=== PATIENT | male | born 1985 | race African-American/Black ===

== ENCOUNTER 2021-02-13 10:48 | Emergency (ER) | payer BC ==
[2021-02-13] MEDS ORDERED: Sodium Chloride 0.9% 10 ML Syringe FLUSH PRN (11:07)
[2021-02-13] MEDS ORDERED: Aspirin 81 MG Tab.Chew PO ONE (11:07)
[2021-02-13] MEDS ORDERED: Famotidine 20 MG/2 ML SDV IVPUSH PRN (11:28)
[2021-02-13] MEDS ORDERED: methylPREDNISolone Sodium Succinate 125 MG/2 ML SDV IVPUSH PRN (11:28)
[2021-02-13] MEDS ORDERED: diphenhydrAMINE 50 MG/ML SDV IVPUSH PRN (11:28)
[2021-02-13] MEDS ORDERED: EPINEPHrine 1 MG/ML SDV IM PRN (11:28)
[2021-02-13] MEDS ORDERED: Sodium Chloride 0.9% 10 ML Syringe FLUSH SCH (11:30)
--- NOTE | 2021-02-13 11:35 | CR ---
Chest: Frontal view of the chest was obtained. Comparison: No prior chest imaging is available. Heart size and mediastinum are normal. Lungs are clear with no acute parenchymal change. Bony structures show nothing acute. Impression: 1. Nothing acute is seen on portable chest x-ray. Diagnostic code #1
--- NOTE | 2021-02-13 11:51 | EDM.PDOC ---
ED HPI GENERAL MEDICAL PROBLEM - General Chief Complaint: Chest Pain Stated Complaint: CHEST PAIN X 2 DAYS Time Seen by Provider: 02/13/21 11:20 Source of Information: Reports: Patient, RN Notes Reviewed History Limitations: Reports: No Limitations - History of Present Illness INITIAL COMMENTS - FREE TEXT/NARRATIVE: Patient is a 35-year-old male who presents to the ER for evaluation of his left- sided chest discomfort. States that this started last night, and has been fairly constant since it started. He took some Tylenol and ibuprofen for initial management and states this seemed to help a little bit. Patient was diagnosed with COVID-19, and his symptoms started on February 05, 2021. Patient does suffer from JUDY, and has a BMI of 43. No other major medical issues that he reports. Not having any fevers or chills, cough, or any worsening shortness of breath or any sort of nausea or vomiting or diarrhea. Patient states he just became concerned due to the chest pain and figured he would come to the ER to get checked out. Left Chest Pain Score (Numeric/FACES): 4 - Related Data Allergies Allergy/AdvReac Type Severity Reaction Status Date / Time No Known Allergies Allergy Verified 02/13/21 11:06 Home Meds: Home Meds . [No Known Home Meds] 02/13/21 [History] Past Medical History Respiratory History: Reports: Sleep Apnea - Infectious Disease History Infectious Disease History: Reports: Novel Coronavirus (02/05/2021) Social & Family History - Tobacco Use Tobacco Use Status *Q: Never Tobacco User - Recreational Drug Use Recreational Drug Use: No ED ROS GENERAL - Review of Systems Review Of Systems: Comprehensive ROS is negative, except as noted in HPI. ED EXAM, GENERAL - Physical Exam Exam: See Below Exam Limited By: No Limitations General Appearance: Alert, WD/WN, No Apparent Distress Respiratory/Chest: No Respiratory Distress, Lungs Clear, Normal Breath Sounds, No Accessory Muscle Use, Chest Non-Tender Cardiovascular: Normal Peripheral Pulses, Regular Rate, Rhythm, No Edema Peripheral Pulses: 2+: Radial (L), Radial (R) Extremities: Normal Inspection, Normal Capillary Refill Neurological: Alert, Oriented, Normal Cognition, No Motor/Sensory Deficits Psychiatric: Normal Affect, Normal Mood Skin Exam: Warm, Dry, Intact, Normal Color, No Rash #1 Interpretation EKG Date: 02/13/21 Time: 11:02 Rhythm: NSR Rate (Beats/Min): 74 [place]: Normal P-Wave: Present QRS: Normal ST-T: Normal QT: Normal Comparison: NA - No Prior EKG EKG Interpretation Comments: No obvious ischemia or acute ST changes noted, reviewed by myself and Dr. Webb. Course - Vital Signs Last Recorded V/S: Last Vital Signs Temp 97.0 F 02/13/21 11:04 Pulse 78 02/13/21 11:04 Resp 12 02/13/21 11:04 BP 132/82 02/13/21 11:04 Pulse Ox 99 02/13/21 11:04 - Orders/Labs/Meds Orders: Active Orders 24 hr Category Date Time Status Cardiac Monitoring [RC] . DIRECTED Care 02/13/21 11:07 Active Oxygen Therapy [RC] ASDIRECTED Care 02/13/21 11:07 Active Peripheral IV Care [RC] . DIRECTED Care 02/13/21 11:07 Active Vital Signs [RC] Q15M Care 02/13/21 11:28 Ordered EPINEPHrine [Adrenalin] Med 02/13/21 11:28 Active 0.3 mg IM ASDIRECTED PRN Famotidine [Pepcid] Med 02/13/21 11:28 Active 20 mg IVPUSH ASDIRECTED PRN Sodium Chloride 0.9% [Saline Flush] Med 02/13/21 11:07 Active 10 ml FLUSH ASDIRECTED PRN Sodium Chloride 0.9% [Saline Flush] Med 02/13/21 11:30 Active 30 ml FLUSH ASDIRECTED diphenhydrAMINE [Benadryl] Med 02/13/21 11:28 Active 50 mg IVPUSH ASDIRECTED PRN methylPREDNISolone Sod Succ [Solu-MEDROL] Med 02/13/21 11:28 Active 125 mg IVPUSH ASDIRECTED PRN Peripheral IV Insertion Adult [OM.PC] Stat Oth 02/13/21 11:07 Ordered Medication Orders Diphenhydramine HCl (Diphenhydramine 50 Mg/Ml Sdv) 50 mg IVPUSH ASDIRECTED PRN PRN Reason: hypersensitivity reaction Epinephrine HCl (Epinephrine 1 Mg/Ml Sdv) 0.3 mg IM ASDIRECTED PRN PRN Reason: hypersensitivity reaction Famotidine (Famotidine 20 Mg/2 Ml Sdv) 20 mg IVPUSH ASDIRECTED PRN PRN Reason: hypersensitivity reaction Methylprednisolone Sodium Succinate (Methylprednisolone Sodium Succinate 125 Mg/2 Ml Sdv) 125 mg IVPUSH ASDIRECTED PRN PRN Reason: hypersensitivity reaction Sodium Chloride (Sodium Chloride 0.9% 10 Ml Syringe) 10 ml FLUSH ASDIRECTED PRN PRN Reason: Keep Vein Open Last Admin: 02/13/21 11:27 Dose: 10 ml Documented by: JESSICAKRI Sodium Chloride (Sodium Chloride 0.9% 10 Ml Syringe) 30 ml FLUSH ASDIRECTED CHRISTIANO Labs: Laboratory Tests 02/13/21 02/13/21 02/13/21 Range/Units 11:10 11:10 11:10 WBC 3.20 L (4.23-9.07) K/mm3 RBC 4.80 (4.63-6.08) M/mm3 Hgb 14.1 (13.7-17.5) gm/dl Hct 43.0 (40.1-51.0) % MCV 89.6 (79.0-92.2) fl MCH 29.4 (25.7-32.2) pg MCHC 32.8 (32.2-35.5) g/dl RDW Std Deviation 39.2 (35.1-43.9) fL Plt Count 195 (163-337) K/mm3 MPV 10.9 (9.4-12.3) fl Neut % (Auto) 33.5 L (34.0-67.9) % Lymph % (Auto) 52.8 (21.8-53.1) % [place] % (Auto) 12.2 (5.3-12.2) % Eos % (Auto) 0.9 (0.8-7.0) Baso % (Auto) 0.3 (0.1-1.2) % Neut # (Auto) 1.07 L (1.78-5.38) K/mm3 Lymph # (Auto) 1.69 (1.32-3.57) K/mm3 [place] # (Auto) 0.39 (0.30-0.82) K/mm3 Eos # (Auto) 0.03 L (0.04-0.54) K/mm3 Baso # (Auto) 0.01 (0.01-0.08) K/mm3 PT 10.4 (9.7-12.0) SECONDS INR 0.93 D-Dimer, Quantitative 0.32 (0.19-0.50) mg/L Sodium 142 (136-145) mEq/L Potassium 4.0 (3.5-5.1) mEq/L Chloride 105 (98-107) mEq/L Carbon Dioxide 28 (21-32) mEq/L Anion Gap 13.0 (5-15) BUN 7 (7-18) mg/dL Creatinine 1.0 (0.7-1.3) mg/dL Est Cr Clr Drug Dosing 106.46 mL/min Estimated GFR (MDRD) > 60 (>60) mL/min BUN/Creatinine Ratio 7.0 L (14-18) Glucose 79 (70-99) mg/dL Calcium 8.6 (8.5-10.1) mg/dL Magnesium 1.8 (1.8-2.4) mg/dL Total Bilirubin 0.6 (0.2-1.0) mg/dL AST 50 H (15-37) U/L ALT 39 (16-63) U/L Alkaline Phosphatase 57 (46-116) U/L Troponin I < 0.017 (0.00-0.056) ng/mL C-Reactive Protein (<1.0) mg/dL NT-Pro-B Natriuret Pep (0-125) pg/mL Total Protein 7.6 (6.4-8.2) g/dl Albumin 3.8 (3.4-5.0) g/dl Globulin 3.8 gm/dL Albumin/Globulin Ratio 1.0 (1-2) 02/13/21 02/13/21 Range/Units 11:10 11:10 WBC (4.23-9.07) K/mm3 RBC (4.63-6.08) M/mm3 Hgb (13.7-17.5) gm/dl Hct (40.1-51.0) % MCV (79.0-92.2) fl MCH (25.7-32.2) pg MCHC (32.2-35.5) g/dl RDW Std Deviation (35.1-43.9) fL Plt Count (163-337) K/mm3 MPV (9.4-12.3) fl Neut % (Auto) (34.0-67.9) % Lymph % (Auto) (21.8-53.1) % [place] % (Auto) (5.3-12.2) % Eos % (Auto) (0.8-7.0) Baso % (Auto) (0.1-1.2) % Neut # (Auto) (1.78-5.38) K/mm3 Lymph # (Auto) (1.32-3.57) K/mm3 [place] # (Auto) (0.30-0.82) K/mm3 Eos # (Auto) (0.04-0.54) K/mm3 Baso # (Auto) (0.01-0.08) K/mm3 PT (9.7-12.0) SECONDS INR D-Dimer, Quantitative (0.19-0.50) mg/L Sodium (136-145) mEq/L Potassium (3.5-5.1) mEq/L Chloride (98-107) mEq/L Carbon Dioxide (21-32) mEq/L Anion Gap (5-15) BUN (7-18) mg/dL Creatinine (0.7-1.3) mg/dL Est Cr Clr Drug Dosing mL/min Estimated GFR (MDRD) (>60) mL/min BUN/Creatinine Ratio (14-18) Glucose (70-99) mg/dL Calcium (8.5-10.1) mg/dL Magnesium (1.8-2.4) mg/dL Total Bilirubin (0.2-1.0) mg/dL AST (15-37) U/L ALT (16-63) U/L Alkaline Phosphatase (46-116) U/L Troponin I (0.00-0.056) ng/mL C-Reactive Protein <0.2 (<1.0) mg/dL NT-Pro-B Natriuret Pep 21 (0-125) pg/mL Total Protein (6.4-8.2) g/dl Albumin (3.4-5.0) g/dl Globulin gm/dL Albumin/Globulin Ratio (1-2) Meds: Medications Generic Name Dose Route Start Last Admin Trade Name Freq PRN Reason Stop Dose Admin Diphenhydramine HCl 50 mg 02/13/21 11:28 Diphenhydramine 50 Mg/Ml Sdv IVPUSH ASDIRECTED PRN hypersensitivity reaction Epinephrine HCl 0.3 mg 02/13/21 11:28 Epinephrine 1 Mg/Ml Sdv IM ASDIRECTED PRN hypersensitivity reaction Famotidine 20 mg 02/13/21 11:28 Famotidine 20 Mg/2 Ml Sdv IVPUSH ASDIRECTED PRN hypersensitivity reaction Methylprednisolone Sodium Succinate 125 mg 02/13/21 11:28 Methylprednisolone Sodium Succinate 125 Mg/2 Ml Sdv IVPUSH ASDIRECTED PRN hypersensitivity reaction Sodium Chloride 10 ml 02/13/21 11:07 02/13/21 11:27 Sodium Chloride 0.9% 10 Ml Syringe FLUSH 10 ml ASDIRECTED PRN Administration Keep Vein Open Sodium Chloride 30 ml 02/13/21 11:30 Sodium Chloride 0.9% 10 Ml Syringe FLUSH ASDIRECTED CHRISTIANO Discontinued Medications Generic Name Dose Route Start Last Admin Trade Name Freq PRN Reason Stop Dose Admin Aspirin 324 mg 02/13/21 11:07 02/13/21 11:19 Aspirin 81 Mg Tab.Chew PO 02/13/21 11:08 324 mg ONETIME ONE Administration Bamlanivimab 700 mg/ 310 mls @ 310 mls/hr 02/13/21 12:00 02/13/21 12:17 Etesevimab 1,400 mg/ Sodium IV 02/13/21 12:59 310 mls/hr Chloride ONETIME ONE Administration - Re-Assessments/Exams Free Text/Narrative Re-Assessment/Exam: 02/13/21 11:49 Patient presents to the ER for his left-sided chest discomfort. Labs were taken at initial time of triage EKG shows no acute abnormalities. I spoke with the patient to provide information about monoclonal antibody treatment. I offered them the "Patient and caregiver EUA monoclonal antibody fact sheet" to read and review. I stated that the drug has been approved by an emergency use authorization (EUA) process and has not been fully FDA reviewed or approved. The patient meets the EUA requirements. I discussed there are other potential treatment options that are currently not FDA approved to treat COVID-19. I did offer an opportunity to ask questions and all questions were answered. The patient voiced understanding and agreed to proceed with the treatment. 02/13/21 12:30 Labs are unremarkable. CRP is within normal limits, D-dimer within normal limits. Troponin undetectably low. Departure - Departure Time of Disposition: 13:07 Disposition: Home, Self-Care 01 Condition: Good Clinical Impression: Atypical chest pain, COVID-19 - Discharge Information *PRESCRIPTION DRUG MONITORING PROGRAM REVIEWED*: No *COPY OF PRESCRIPTION DRUG MONITORING REPORT IN PATIENT HUMA: No Instructions: Prone Position Therapy, 10 Things You Can Do to Manage Your COVID-19 Symptoms at Home - [facility] (09/26/2020), Chest Wall Pain Referrals: PCP,None [Primary Care Provider] - Forms: ED Department Discharge Additional Instructions: You were seen in the ER today for ongoing chest pain symptoms. Your chest x-ray showed no signs of pneumonia at this time. Your oxygen levels were great at 97% on room air. Laboratory evaluation demonstrated all labs within normal limits. You are not suffering from a heart attack at today's visit. You were given IV monoclonal antibody therapy at today's visit, this medication is thought to work by making you a little less sick, and helps to decrease the length of time that you are sick. Please try to increase your oral fluid intake, and eat multiple small meals throughout the day, to keep yourself healthy. You need to keep yourself nourished in order to fight off this disease. You can try a liquid diet like gatorade/powerade as well to get your electrolytes. You may take 500 mg Tylenol every hours 6 hours for pain/fever relief. Do not exceed 4000 mg Tylenol in a 24-hour time span. However, running a fever is your body's natural response to illness, and it allows the body to develop antibodies to disease, we are recommending trying to limit the use of Tylenol as much as possible to allow your body's natural immune response. Recommend you obtain a pulse oximeter and monitor your oxygen levels at home, you should place the monitor on your finger, and sit in a calm, quiet position for a few minutes and then record the number that is on the screen. If this consistently below 90% on room air without movement, this would be cause for concern to come back to the hospital for further management of your COVID-19 disease. Please follow all guidance set forth from [facility], regarding isolation purposes for your disease process. General isolation times are 10 days from when you started being symptomatic. Sepsis Event Note (ED) - Evaluation Sepsis Screening Result: No Definite Risk - Focused Exam Vital Signs: Vital Signs Temp Pulse Resp BP Pulse Ox 02/13/21 11:04 97.0 F 78 12 132/82 99 - My Orders Last 24 Hours: My Active Orders 02/13/21 11:07 Cardiac Monitoring [RC] . DIRECTED Oxygen Therapy [RC] ASDIRECTED Peripheral IV Care [RC] . DIRECTED Sodium Chloride 0.9% [Saline Flush] 10 ml FLUSH ASDIRECTED PRN Peripheral IV Insertion Adult [OM.PC] Stat 02/13/21 11:28 Vital Signs [RC] Q15M EPINEPHrine [Adrenalin] 0.3 mg IM ASDIRECTED PRN Famotidine [Pepcid] 20 mg IVPUSH ASDIRECTED PRN diphenhydrAMINE [Benadryl] 50 mg IVPUSH ASDIRECTED PRN methylPREDNISolone Sod Succ [Solu-MEDROL] 125 mg IVPUSH ASDIRECTED PRN 02/13/21 11:30 Sodium Chloride 0.9% [Saline Flush] 30 ml FLUSH ASDIRECTED - Assessment/Plan Last 24 Hours: My Active Orders 02/13/21 11:07 Cardiac Monitoring [RC] . DIRECTED Oxygen Therapy [RC] ASDIRECTED Peripheral IV Care [RC] . DIRECTED Sodium Chloride 0.9% [Saline Flush] 10 ml FLUSH ASDIRECTED PRN Peripheral IV Insertion Adult [OM.PC] Stat 02/13/21 11:28 Vital Signs [RC] Q15M EPINEPHrine [Adrenalin] 0.3 mg IM ASDIRECTED PRN Famotidine [Pepcid] 20 mg IVPUSH ASDIRECTED PRN diphenhydrAMINE [Benadryl] 50 mg IVPUSH ASDIRECTED PRN methylPREDNISolone Sod Succ [Solu-MEDROL] 125 mg IVPUSH ASDIRECTED PRN 02/13/21 11:30 Sodium Chloride 0.9% [Saline Flush] 30 ml FLUSH ASDIRECTED
== END 2021-02-13 14:30 | disposition home or self-care (01) ==
LOC: JD.ED 10:48
DX: R07.89 Other chest pain (principal); U07.1 COVID-19
CPT/HCPCS: 36415; 71045; 80053; 83735; 83880; 84484; 85025; 85379; 85610; 86140; 93005; 99285; A9270; J7050; M0245; Q0245

== ENCOUNTER 2021-02-26 11:24 | Emergency (ER) | payer BC ==
--- NOTE | 2021-02-26 12:06 | EDM.PDOC ---
ED HPI GENERAL MEDICAL PROBLEM - General Chief Complaint: Respiratory Problem Stated Complaint: COUGH HAS COVID 2/3 WEEKS AGO Time Seen by Provider: 02/26/21 11:48 Source of Information: Reports: Patient, RN Notes Reviewed - History of Present Illness INITIAL COMMENTS - FREE TEXT/NARRATIVE: 35 yr old male had onset of covid sx about 3 wks ago, tested pos. a few days later. Did get the infusion. Still coughing a lot, has been coughing up small amts of phlegm with some streaks of blood. Unvacinated. Not currently short of breath. No current fever or chills. - Related Data Allergies Allergy/AdvReac Type Severity Reaction Status Date / Time No Known Allergies Allergy Verified 02/13/21 11:06 Home Meds: Home Meds Acetaminophen/Codeine [Tylenol with Codeine No.3 300MG/30MG] 1 tab PO Q4H PRN #14 tab 02/26/21 [Rx] Past Medical History Respiratory History: Reports: Sleep Apnea - Infectious Disease History Infectious Disease History: Reports: Novel Coronavirus Social & Family History - Tobacco Use Tobacco Use Status *Q: Never Tobacco User - Caffeine Use Caffeine Use: Reports: Coffee, Soda - Recreational Drug Use Recreational Drug Use: No ED ROS GENERAL - Review of Systems Review Of Systems: See Below Constitutional: Denies: Fever, Chills HEENT: Denies: Rhinitis, Throat Pain Respiratory: Reports: Shortness of Breath, Cough, Sputum, Hemoptysis Cardiovascular: Reports: Chest Pain (with coughing) GI/Abdominal: Reports: Abdominal Pain Musculoskeletal: Reports: No Symptoms Skin: Reports: No Symptoms Neurological: Reports: No Symptoms ED EXAM, GENERAL - Physical Exam Exam: See Below General Appearance: Alert, Other (occasional cough) Head: Atraumatic Neck: Supple Respiratory/Chest: No Respiratory Distress, Lungs Clear, Normal Breath Sounds, No Accessory Muscle Use. No: Rhonchi, Wheezing Cardiovascular: Regular Rate, Rhythm Extremities: No: Pedal Edema, Leg Pain Neurological: Alert, Oriented, No Motor/Sensory Deficits Skin Exam: Warm, Dry, Normal Color Course - Vital Signs Last Recorded V/S: Last Vital Signs Temp 97.4 F 02/26/21 11:32 Pulse 73 02/26/21 11:32 Resp 16 02/26/21 11:32 BP 143/98 H 02/26/21 11:32 Pulse Ox 94 L 02/26/21 11:32 - Orders/Labs/Meds Labs: Laboratory Tests 02/26/21 02/26/21 02/26/21 Range/Units 12:15 12:15 12:15 WBC 4.22 L (4.23-9.07) K/mm3 RBC 4.85 (4.63-6.08) M/mm3 Hgb 14.3 (13.7-17.5) gm/dl Hct 44.0 (40.1-51.0) % MCV 90.7 (79.0-92.2) fl MCH 29.5 (25.7-32.2) pg MCHC 32.5 (32.2-35.5) g/dl RDW Std Deviation 40.3 (35.1-43.9) fL Plt Count 246 (163-337) K/mm3 MPV 10.8 (9.4-12.3) fl Neut % (Auto) 34.4 (34.0-67.9) % Lymph % (Auto) 51.4 (21.8-53.1) % [place] % (Auto) 10.0 (5.3-12.2) % Eos % (Auto) 3.8 (0.8-7.0) Baso % (Auto) 0.2 (0.1-1.2) % Neut # (Auto) 1.45 L (1.78-5.38) K/mm3 Lymph # (Auto) 2.17 (1.32-3.57) K/mm3 [place] # (Auto) 0.42 (0.30-0.82) K/mm3 Eos # (Auto) 0.16 (0.04-0.54) K/mm3 Baso # (Auto) 0.01 (0.01-0.08) K/mm3 D-Dimer, Quantitative 0.28 (0.19-0.50) mg/L Sodium 140 (136-145) mEq/L Potassium 4.2 (3.5-5.1) mEq/L Chloride 102 (98-107) mEq/L Carbon Dioxide 28 (21-32) mEq/L Anion Gap 14.2 (5-15) BUN 10 (7-18) mg/dL Creatinine 1.1 (0.7-1.3) mg/dL Est Cr Clr Drug Dosing 96.78 mL/min Estimated GFR (MDRD) > 60 (>60) mL/min BUN/Creatinine Ratio 9.1 L (14-18) Glucose 91 (70-99) mg/dL Calcium 8.9 (8.5-10.1) mg/dL Total Bilirubin 0.5 (0.2-1.0) mg/dL AST 26 (15-37) U/L ALT 25 (16-63) U/L Alkaline Phosphatase 58 (46-116) U/L C-Reactive Protein <0.2 (<1.0) mg/dL Total Protein 8.2 (6.4-8.2) g/dl Albumin 4.2 (3.4-5.0) g/dl Globulin 4.0 gm/dL Albumin/Globulin Ratio 1.1 (1-2) - Re-Assessments/Exams Free Text/Narrative Re-Assessment/Exam: 02/26/21 12:57 CXR looks fine. CRP less than 0.2. D Dimer is good. Departure - Departure Time of Disposition: 13:10 Disposition: Home, Self-Care 01 Condition: Fair Clinical Impression: Bronchitis, COVID-19 - Discharge Information Prescriptions: Acetaminophen/Codeine [Tylenol with Codeine No.3 300MG/30MG] 1 tab PO Q4H PRN #14 tab PRN Reason: Pain Instructions: Acute Bronchitis, Adult, [id number] Referrals: PCP,None [Primary Care Provider] - Forms: ED Department Discharge Additional Instructions: Vaporizer or steam as needed. You may take tylenol with codeine for severe cough, do not drive when taking the tylenol with codeine. Prescription has been sent to [facility] at the [facility] grocery store. The cough should gradually resolve over the next 1 to 2 weeks. Follow up clinic as needed. Return to ED if symptoms worsening in any way. Sepsis Event Note (ED) - Evaluation Sepsis Screening Result: No Definite Risk
--- NOTE | 2021-02-26 12:26 | CR ---
Chest: Frontal view of the chest was obtained. Comparison: Prior chest x-ray of 02/13/21. Heart size and mediastinum are normal. Lungs are clear with no acute parenchymal change. Bony structures show nothing acute. Impression: 1. Nothing acute is seen on frontal chest x-ray. Diagnostic code #1
== END 2021-02-26 13:41 | disposition home or self-care (01) ==
LOC: JD.ED 11:24
DX: U07.1 COVID-19 (principal); J40 Bronchitis, not specified as acute or chronic
CPT/HCPCS: 36415; 71045; 71045-26; 80053; 85025; 85379; 86140; 99283-25